=== PATIENT | male | born 1950 | race Two or more races ===

== ENCOUNTER 2017-12-23 14:46 | Observation (INO) | payer MEDICARE ==
[~2017-12-23] VITALS: Ht 177.8 cm; Wt 99.4 kg
[2017-12-23 15:23] LABS: BASOPHILS # (AUTO) 0.02 x10^3/uL (0-0.1); BASOPHILS % (AUTO) 0 % (0-1); EOSINOPHILS # (AUTO) 0.49 x10^3/uL (0-0.4); EOSINOPHILS % (AUTO) 5 % (1-7); LYMPHOCYTES # (AUTO) 2.08 x10^3/uL (1-3.4); LYMPHOCYTES % (AUTO) 20 % (22-44); MD NO; MEAN CORPUSCULAR HEMOGLOBIN 33.4 pg (27.5-34.5); MEAN CORPUSCULAR HGB CONC 34.5 g/dL (33.2-36.2); MEAN PLATELET VOLUME 7.9 fL (7.4-10.4); MONOCYTES # (AUTO) 0.82 x10^3/uL (0.2-0.8); MONOCYTES % (AUTO) 8 % (2-9); NEUTROPHILS # (AUTO) 7.05 x10^3/uL (1.8-6.8); NEUTROPHILS % (AUTO) 67 % (42-75); PLATELET COUNT 221 x10^3/uL (130-400); RED BLOOD COUNT 4.69 x10^6/uL (4.38-5.82); RED CELL DISTRIBUTION WIDTH 13.5 % (9.4-14.8)
[2017-12-23 15:34] LABS: ALANINE AMINOTRANSFERASE 20 U/L (12-78); ALBUMIN 3.6 g/dL (3.4-5.0); ANION GAP 5 mmol/L (5-15); CHLORIDE 108 mmol/L (98-107); CREATININE 1.12 mg/dL (0.7-1.3)
[2017-12-23 15:36] LABS: ALKALINE PHOSPHATASE 54 U/L (45-117); BILIRUBIN,TOTAL 0.6 mg/dL (0.2-1.0)
[2017-12-23] MEDS ORDERED: MORPHINE SULFATE 4 MG/ML, 1ML IVPush PRN ×2 (16:30→19:00)
[2017-12-23] MEDS ORDERED: ONDANSETRON ODT 4 MG PO ONE (16:30)
[2017-12-23] MEDS ORDERED: SODIUM CHLORIDE FLUSH 10ML SYR IVF ONE (16:30)
[2017-12-23 16:40] LABS: MICROSCOPIC NOT IND
[2017-12-23 16:50] LABS: CULTURE INDICATED? NO
[2017-12-23] MEDS ORDERED: LISI-167 PO (16:58)
[2017-12-23] MEDS ORDERED: ERGO500017 PO (16:58)
[2017-12-23] MEDS ORDERED: ATOR20TA PO (16:58)
[2017-12-23] MEDS ORDERED: MONT10TA9 PO (16:58)
[2017-12-23] MEDS ORDERED: FINA5TAB4 PO (16:58)
[2017-12-23] MEDS ORDERED: RANI150C PO (16:58)
[2017-12-23] MEDS ORDERED: LEVO5TAB29 PO (16:58)
[2017-12-23] MEDS ORDERED: TAMS0.4C2 PO (16:58)
[2017-12-23] MEDS ORDERED: OMNIPAQUE 350 MG/ML, 100ML BOTTLE ONE (17:40)
[2017-12-23] MEDS ORDERED: CEFOTETAN PMX 1GM/50ML 50 ML IV ONE (18:00)
[2017-12-23] MEDS ORDERED: CEFOTETAN PMX 1GM/50ML 50 ML ONE (18:12)
[2017-12-23] MEDS ORDERED: BUPIVACAINE/PF 0.5% ONE (18:20)
[2017-12-23] MEDS ORDERED: EPINEPHRINE 1 MG/ML, 1ML ONE (18:20)
[2017-12-23] MEDS ORDERED: DEXAMETHASONE 4 MG/ML, 1ML ONE (18:39)
[2017-12-23] MEDS ORDERED: NEOSTIGMINE 1 MG/ML, 10ML ONE (18:39)
[2017-12-23] MEDS ORDERED: PROPOFOL 10 MG/ML, 20ML ONE (18:39)
[2017-12-23] MEDS ORDERED: LIDOCAINE-MPF 2% ,5ML ONE ×2 (18:39→18:40)
[2017-12-23] MEDS ORDERED: KETOROLAC 30 MG/1 ML ONE (18:39)
[2017-12-23] MEDS ORDERED: ROCURONIUM 10 MG/ML,10ML ONE (18:39)
[2017-12-23] MEDS ORDERED: SUCCINYLCHOLINE 20 MG/ML, 10ML ONE (18:39)
[2017-12-23] MEDS ORDERED: GLYCOPYRROLATE 0.2MG/1ML, 5ML ONE (18:39)
[2017-12-23] MEDS ORDERED: LIDOCAINE GEL 2%, 5ML ONE (18:40)
[2017-12-23] MEDS ORDERED: FENTANYL PF 100 MCG/2ML ONE ×2 (18:40→19:24)
[2017-12-23] MEDS ORDERED: BUPIVACAINE/PF-EPI 0.5% 1:200K IM ONE (18:57)
[2017-12-23] MEDS ORDERED: OXYcodone 5 MG/5 ML ORAL.SOL UDC PO PRN (19:00)
[2017-12-23] MEDS ORDERED: PROMETHAZINE 25 MG/ML, 1ML IM PRN (19:00)
[2017-12-23] MEDS ORDERED: SCOPOLAMINE PATCH, 1.5MG PATCH.TD72 TD PRN (19:00)
[2017-12-23] MEDS ORDERED: LORazepam 2 MG/ML, 1ML IVPush PRN (19:00)
[2017-12-23] MEDS ORDERED: FENTANYL PF 100 MCG/2ML IV PRN (19:00)
[2017-12-23] MEDS ORDERED: hydrALAzine 20 MG/ML, 1ML IV PRN ×2 (19:00→19:30)
[2017-12-23] MEDS ORDERED: EPHEDRINE 50 MG/ML, 1ML IM PRN (19:00)
[2017-12-23] MEDS ORDERED: PROMETHAZINE 25 MG/ML, 1ML IV PRN (19:00)
[2017-12-23] MEDS ORDERED: DIPHENHYDRAMINE 50 MG/ML, 1ML IVPush PRN (19:00)
[2017-12-23] MEDS ORDERED: ALBUTEROL/IPRATROPIUM 2.5MG/0.5MG, 3 ML NPPB PRN (19:00)
[2017-12-23] MEDS ORDERED: LABETALOL 5MG/ML, 20ML IV PRN (19:00)
[2017-12-23] MEDS ORDERED: ONDANSETRON ODT 8 MG PO PRN (19:00)
[2017-12-23] MEDS ORDERED: ACETAMINOPHEN 325 MG TABLET PO PRN (19:00)
[2017-12-23] MEDS ORDERED: MIDAZOLAM 1 MG/ML, 2ML IV PRN (19:00)
[2017-12-23] MEDS ORDERED: MEPERIDINE/PF 25MG/0.5ML IVPush PRN (19:00)
[2017-12-23] MEDS ORDERED: DIAZEPAM 5 MG/ML, 2ML IVPush PRN (19:00)
[2017-12-23] MEDS ORDERED: LACTATED RINGERS 1,000 ML IV SCH (19:12)
[2017-12-23] MEDS ORDERED: ACETAMINOPHEN 650 MG/20.3 ML UDC ONE (19:24)
[2017-12-23] MEDS ORDERED: OXYcodone 5 MG/5 ML ORAL.SOL UDC ONE (19:25)
[2017-12-23] MEDS ORDERED: ONDANSETRON 2MG/ML, 2ML IVPush PRN (19:30)
[2017-12-23] MEDS ORDERED: DIPHENHYDRAMINE 50 MG/ML, 1ML IV PRN (19:30)
[2017-12-23] MEDS ORDERED: HYDROmorphone 1 MG/ML, 1ML IV PRN (19:30)
[2017-12-23] MEDS ORDERED: HYDROcodone/APAP 5/325 TABLET PO PRN (19:30)
[2017-12-23] MEDS ORDERED: KETOROLAC 30 MG/1 ML IV PRN (19:30)
[2017-12-23 20:58] VITALS: BP 119/75
[2017-12-23] MEDS ORDERED: HYDR-3240 PO (23:54)
[2017-12-24 00:11] VITALS: BP 107/71
[2017-12-24 04:16] VITALS: BP 102/65
[2017-12-24] MEDS ORDERED: CEFOTETAN PMX 2GM/50ML 50 ML IVPB SCH (06:00)
[2017-12-24 07:30] VITALS: BP 108/67
== END 2017-12-24 12:25 | disposition home or self-care (01) ==
LOC: ED 17:54 → INTOOBSV 18:08 → EDIP 18:08 → 4NOR 20:46 → DCLOUNGE 12-24 12:12
PROVIDERS: ADMIT Thoracic Surgery (Cardiothoracic Vascular Surgery); ATTEND Thoracic Surgery (Cardiothoracic Vascular Surgery)
DX: K35.80 Unspecified acute appendicitis (principal); E78.00 Pure hypercholesterolemia, unspecified; F17.210 Nicotine dependence, cigarettes, uncomplicated; I10 Essential (primary) hypertension; N40.0 Benign prostatic hyperplasia without lower urinary tract symptoms
CPT/HCPCS: 36415; 44970; 74022; 74177; 80053; 81003; 83690; 85025; 88304; 93005; 96365; 96375; 99285; G0378; J0171; J0330; J1100; J1885; J2704; J2710; J3010; J3490; J7120; Q9967; S0074